=== PATIENT | male | born 1955 | race Caucasian/White ===

== ENCOUNTER → 2018-07-20 20:28 | Outpatient (CLI) | payer OTHER ==
[2013-06-04 06:40] VITALS: BMI 37.9
[~2018-07-20 20:28] MED LIST: ARMOUR THYROID30 MG PO; BAYER CHEWABLE81 MG PO; COZAAR100 MG PO; NEXIUM40 MG PO; NORVASC10 MG PO; SYNTHROID75 MCG PO; VITAMIN D250000 UNIT PO; ZYLOPRIM300 MG PO
[2018-07-31 06:32] VITALS: BMI 40.5
== END | disposition home or self-care (01) ==
LOC: D.LABREF 20:28
DX: D72.829 Elevated white blood cell count, unspecified (principal); R31.9 Hematuria, unspecified

== ENCOUNTER 2018-07-31 05:34 | Day surgery (SDC) | payer OTHER ==
[~2018-07-31] VITALS: Ht 177.8 cm; Wt 127.9 kg
[2018-07-31 06:13] LABS: HEMATOCRIT 46.8 % (42.0-54.0); HEMOGLOBIN 16.1 g/dL (13.5-17.5); MCHC 34.4 g/dL (31.0-37.0); MCV 95.9 fL (80.0-100.0); MEAN PLATELET VOLUME 10.6 fL (7.4-10.4); RBC 4.88 10x6/uL (4.20-6.10); RDW 13.2 % (11.5-14.5); WBC 7.5 10x3/uL (4.8-10.8)
[2018-07-31 06:32] VITALS: BP 166/95; Ht 177.8 cm; Wt 127.9 kg
--- NOTE | 2018-07-31 08:49 | NUR ---
[address] AGRAWAL. Orville BUNCH R.N.
--- NOTE | 2018-07-31 09:37 | OP ---
PATIENT NAME: AMY ALBERTO MEDICAL RECORD: [id number] :53 LOCATION:D.OPS ADMISSION DATE: SURGEON: AMISH AGRAWAL MD DATE OF OPERATION: 07/31/2018 SURGEON: Amish Agrawal MD ANESTHESIA: TIVA by Je Gilliland CRNA. PROCEDURES: Cystoscopy, transrectal ultrasound of the prostate with prostate biopsy. FINDINGS: On cystoscopy, obstructive vascular prostate with trilobar hyperplasia. Very tall bladder neck. He has single ureteral orifices bilaterally. No bladder tumors. Trabeculated bladder with bladder stones. Transrectal ultrasound shows a 54-gram prostate with intraprostatic stones in the hypoechoic areas internally. SPECIMENS: Prostate biopsy cores. BLOOD LOSS: Minimal. CLINICAL HISTORY: This is a 62-year-old male, who was found to have an elevated PSA of 8.18 in June of 2018. He comes today to have a transrectal ultrasound and prostate biopsy. Urinalysis shows microscopic hematuria. He has urine cytology and a CT scan of the abdomen and pelvis pending. During the same procedure, we will be performing cystoscopy. DESCRIPTION OF PROCEDURE: The patient was given IV sedation. He was placed into lithotomy position and prepped and draped. A 17-[place] cystoscope was used for visualization. Findings are as outlined above. I tried to use the Ellik evacuator to get the bladder stones out, but not all of them came out. The scope was then removed after emptying the bladder. We then turned to the transrectal ultrasound. The transrectal ultrasound probe was introduced. Prostate size measurements were obtained and we obtained a size of 54 grams. Internal prostatic stones and hypoechoic areas were noted. Sextant biopsies were obtained with at least 3 cores from each sextant. Once the specimens were obtained, the procedure was terminated. The patient was awakened and brought back to the preoperative holding area. I will see him in followup next week to review the pathology with him. TRANSINT:[id number] Voice Confirmation ID: [id number] DOCUMENT ID: [id number] AMISH AGRAWAL MD at [id number] CC: [id number] DICTATION DATE: 07/31/18 0832 [employer] WORKER: 07/31/18 0910 [facility] [address] [place] [address]
--- NOTE | 2018-07-31 11:27 | NUR ---
0940 DRESSED. AWAKE & ALERT. GIVEN DISCHARGE INFORMATION INCLUDING: MED REC, [facility] OUTPATIENT D/C INSTRUCTIONS, RTC APPT., & POST CYSTOSCOPY D/C INSTRUCTIONS. CALL PLACED TO WALLACE AGRAWAL'S OFFICE R/T CAT SCAN. PT & GIVEN # TO CALL TO GET CAT SCAN APPT. PT VOICED UNDERSTANDING. TO PRIVATE CAR PER WHEELCHAIR BY VOLUNTEER. HOME WITH MRS. MILLER. Orville BUNCH R.N.
== END 2018-07-31 09:40 | disposition home or self-care (01) ==
LOC: D.OPS 05:34
PROVIDERS: Anesthesiology
DX: N40.1 Benign prostatic hyperplasia with lower urinary tract symptoms (principal); R31.29 Other microscopic hematuria; R97.20 Elevated prostate specific antigen [PSA]; N13.8 Other obstructive and reflux uropathy; N21.0 Calculus in bladder

== ENCOUNTER → 2018-08-03 08:46 | Outpatient (CLI) | payer OTHER ==
[2018-07-31 06:32] VITALS: BMI 40.5
== END | disposition home or self-care (01) ==
LOC: D.CT 08:46
DX: R31.21 Asymptomatic microscopic hematuria (principal)

== ENCOUNTER → 2018-08-20 08:51 | Outpatient (CLI) | payer OTHER ==
[2018-07-31 06:32] VITALS: BMI 40.5
== END | disposition home or self-care (01) ==
LOC: D.NM 08:51
DX: C61 Malignant neoplasm of prostate (principal)